=== PATIENT | male | born 1945 | race Caucasian/White ===

== ENCOUNTER 2023-10-28 10:04 | Day surgery (SDC) | payer MEDICARE, BC, SELFPAY ==
--- NOTE | 2023-10-28 | PATH_ITS ---
[facility] Accession Number: [id number] No. of containers..01 Tissue . 01 Material submitted: . colon - TRANSVERSE COLON . 01 Diagnosis: Colon, transverse, polyp biopsy: Tubular adenoma. TXN 10/30/2023 1515 Local . 01 Electronically signed: . Priya Bledsoe MD, Pathologist NPI- [id number] . 01 Gross description: . Received in formalin with two patient identifiers and transverse colon, is a single mendez soft tissue fragment, 0.4 cm in greatest dimension. Submitted in A1. ([id number]) /MRV 10/29/2023 1820 Local . 01 Pathologist provided ICD-10: D12.6 . 01 CPT . 690797 Specimen Comment: A courtesy copy of this report has been sent to [phone] Performed at: [address] [facility] [address], [place], [place] [id number] MD James De Jesus MD Phone: [phone]
[2023-10-28 10:32] VITALS: BP 134/82; PULSE 104; RESP 12; TEMP 36.1; O2SAT 91
[2023-10-28] MEDS: LACTATED RINGERS 1,000 ML 42 ML IV (10:51)
--- NOTE | 2023-10-28 10:51 | PM.HP.1 ---
History of Present Illness History of Present Illness Date Patient Seen: 10/28/23 Time Patient Seen: 10:51 Chief complaint: Colonoscopy Narrative: 77-year-old male reporting for colon polyp surveillance. [facility] Medical History Heartburn Hyperlipemia Hypothyroid HTN (hypertension) Surgical History H/O thyroidectomy Social History Smoking Status: Never smoker alcohol intake: current Meds Home Medications and Allergies Home Medications Medication Instructions Recorded Confirmed Type ipratropium bromide 21 mcg (0.03 21 mcg intranasal PRN PRN 10/28/23 10/28/23 History %) nasal spray Congestion levothyroxine 150 mcg tablet 150 mcg PO DAILY 10/28/23 10/28/23 History (Synthroid) losartan 100 1 tab PO DAILY 10/28/23 10/28/23 History mg-hydrochlorothiazide 12.5 mg tablet lovastatin 40 mg tablet 40 mg PO DAILY 10/28/23 10/28/23 History Allergies Allergy/AdvReac Type Severity Reaction Status Date / Time No Known Drug Allergies Allergy Verified 10/28/23 10:28 Review of Systems Review of Systems ROS: Yes All systems reviewed with the patient and are negative except as otherwise documented Exam Vital Signs (past 8 hours): - 10/28/23 10:32 Temperature 96.9 F L Pulse Rate 104 H Respiratory Rate 12 Blood Pressure 134/82 Pulse Oximetry 91 Oxygen Delivery Method Room Air Oxygen Delivery Method Room Air Const General: cooperative HENMT Head: normal to inspection Eyes General: appearance normal, both eyes and all related structures Neck Neck: normal visual inspection Chest Chest: normal inspection of the chest Resp Effort & Inspection: normal respiratory effort Cardio Rate: regular rate GI Inspection: normal to inspection Skin General: no rashes or lesions noted Neuro General: patient alert and patient awake Extrem General: normal to inspection and no pedal edema Psych Appearance: grossly normal Assessment & Plan Assessment & Plan narrative: 77-year-old male with a personal history of colon polyps. Colonoscopy is pursued today.
--- NOTE | 2023-10-28 10:52 | PM.PREOP ---
Pre-operative Note Interval Note History & Physical reviewed/Exam performed by Physician: Yes Changes to H&P: No ASA Class (for procedural sedation): II
--- NOTE | 2023-10-28 12:16 | P.OP.COLON_ITS ---
Operative Date/Time/Diagnoses Date of procedure: 10/28/23 Time of procedure: 12:16 Pre-op diagnosis: Personal history of colon polyps Post-op diagnosis: same Procedure & Clinicians Study performed: Colonoscopy with cold snare polypectomy Same procedure as scheduled: Yes Indications: Personal history of colon polyps Surgeon: Randy Gomez Procedure Notes SCOAP/Timeout: Done Procedure in detail: After the risks and benefits were explained, written and verbal informed consent was obtained. The patient was brought into the procedure room and placed into the left lateral decubitus position. Please see anesthesia notes for sedation details. Digital rectal examination was accomplished. The scope was introduced into the patient and advanced under direct visualization to the cecum as identified by the appendiceal orifice and ileocecal valve. The scope was slowly withdrawn to carefully examine the mucosa for any defects or lesions. Comprehensive imaging was accomplished throughout the rectum including the den caraballo line. The colon was decompressed, the scope was then removed from the patient who tolerated the procedure well. Pediatric colonoscope Bowel prep adequate Scope withdrawal time: 9 minutes Sedation minutes: 15 Complications: none Impression: There were some scattered diverticula in the sigmoid region. In the transverse colon there was a 6-7 mm sessile polyp that we initially thought to removed with hot snare. The snare came through cold without any cautery effect. There was no evidence of any concerning bleeding. No additional pathology was appreciated throughout. Endoscopic diagnosis 1. Small colon polyp 2. Diverticulosis Post-procedure Plan for aftercare: 1. Await histology. 2. Consider repeat colonoscopy 7 years. Disposition: PACU
[2023-10-28 12:17] VITALS: BP 92/57; PULSE 65; RESP 14; TEMP 36.1; O2SAT 96
[2023-10-28 12:24] VITALS: BP 81/61; PULSE 84; RESP 14; O2SAT 96
[2023-10-28 12:29] VITALS: BP 100/75; PULSE 81; RESP 19; O2SAT 95
[2023-10-28 12:41] VITALS: BP 108/75; PULSE 73; RESP 18; TEMP 36.7; O2SAT 98
== END 2023-10-28 12:42 | disposition home or self-care (01) ==
PROVIDERS: PCP Internal Medicine; Referring Provider Internal Medicine Gastroenterology; Visit Provider Internal Medicine Gastroenterology
PROC: 0DJD8ZZ Inspection of Lower Intestinal Tract, Via Natural or Artificial Opening Endoscopic (ICD-10-PCS; CPT 45378; principal; 2023-10-28 11:30)
DX: Z12.11 Encounter for screening for malignant neoplasm of colon (principal); Z86.010 Personal history of colon polyps; K57.30 Diverticulosis of large intestine without perforation or abscess without bleeding; D12.3 Benign neoplasm of transverse colon
CPT/HCPCS: 45385; J2704